=== PATIENT | male | born 1980 | race Caucasian/White ===

== ENCOUNTER 2025-02-15 09:10 | Emergency (ER) | payer MEDICAID, OTHER ==
[~2025-02-15] VITALS: Ht 170.2 cm; Wt 92.5 kg
[2025-02-15 10:37] LABS: BASOPHILS % (AUTO) 0.4 % (0.0-2.0); EOSINOPHILS # (AUTO) 0.1 K/uL (0.0-0.7); HEMATOCRIT 40.7 % (36.7-47.1); HEMOGLOBIN 13.2 g/dL (12.5-16.3); LYMPHOCYTES # (AUTO) 5.6 K/uL (0.8-4.8); LYMPHOCYTES % (AUTO) 67.1 % (20.5-51.5); MEAN CORPUSCULAR HEMOGLOBIN 26.8 uug (23.8-33.4); MEAN CORPUSCULAR HGB CONC 32 g/dL (32.5-36.3); MEAN CORPUSCULAR VOLUME 82.9 fL (73.0-96.2); MONOCYTES # (AUTO) 0.3 K/uL (0.1-1.30); MONOCYTES % (AUTO) 3.7 % (0.0-11.0); NEUTROPHILS # (AUTO) 2.3 K/uL (1.8-8.9); NEUTROPHILS % (AUTO) 27.8 % (38.5-71.5); PLATELET COUNT (AUTO) 221 K/uL (152-348); RED BLOOD CELL COUNT(AUTO) 4.92 MIL/uL (4.06-5.63); RED CELL DISTRIBUTION WIDTH 16.3 % (12.1-16.2); WHITE BLOOD COUNT (AUTO) 8.4 K/uL (3.6-10.2)
[2025-02-15 10:46] LABS: DIFFERENTIAL COMMENT 1
[2025-02-15 11:07] LABS: ALBUMIN 2.3 g/dL (3.4-5.0); BILIRUBIN,DIRECT 0.4 mg/dL (0.0-0.2); BILIRUBIN,TOTAL 0.6 mg/dL (0.2-1.0); CALCIUM 8.6 mg/dL (8.5-10.1); CREATININE 1.1 mg/dL (0.6-1.3); POTASSIUM 4.4 mmol/L (3.5-5.1); TOTAL PROTEIN, SERUM 6.1 g/dL (6.4-8.2)
[2025-02-15] MEDS ORDERED: CEFAZOLIN 1 G VIAL ONE (11:55)
[2025-02-15] MEDS ORDERED: MAGNESIUM SULFATE/D5W 100 ML ONE ×2 (11:55→13:17)
[2025-02-15] MEDS: CEFAZOLIN 1 G in IV DEXTROSE 5% 50 ML IV ONE (12:12)
[2025-02-15] MEDS ORDERED: CEFD300C3 PO (12:33)
[2025-02-15] MEDS: MAGNESIUM SULFATE/D5W 100 ML IV SCH (12:41)
[2025-02-15] MEDS ORDERED: FLAS1EAC2 TP (14:29)
[2025-02-15] MEDS ORDERED: FLAS1KIT2 TP (14:29)
[2025-02-15] MEDS ORDERED: BLOO-1731 MC (14:55)
[2025-02-15 15:03] VITALS: BP 121/77; O2SAT 98
== END 2025-02-15 15:07 | disposition home or self-care (01) ==
LOC: ER 09:10
DX: L08.89 Other specified local infections of the skin and subcutaneous tissue (principal); E11.9 Type 2 diabetes mellitus without complications; E83.42 Hypomagnesemia; E78.5 Hyperlipidemia, unspecified; G40.909 Epilepsy, unspecified, not intractable, without status epilepticus; I50.9 Heart failure, unspecified; J45.909 Unspecified asthma, uncomplicated; Z88.0 Allergy status to penicillin; Z88.1 Allergy status to other antibiotic agents; Z88.2 Allergy status to sulfonamides
CPT/HCPCS: 99284; 96365; 71045; 96367; 96366; 80076; 80048; 83880; 83735; 85025; J0690; J3475 ×2; J7040; A4606; A4663

== ENCOUNTER 2025-07-24 20:55 | Emergency (ER) | payer OTHER ==
[~2025-07-24] VITALS: Ht 170.2 cm; Wt 120.7 kg
[~2025-07-24 20:55] MED LIST: BLOO-1731 MC; CEFD300C3 PO
[2025-07-24 21:29] LABS: PLATELET COUNT (AUTO) 152 K/uL (152-348); RED BLOOD CELL COUNT(AUTO) 5.03 MIL/uL (4.06-5.63); RED CELL DISTRIBUTION WIDTH 16.4 % (12.1-16.2); WHITE BLOOD COUNT (AUTO) 10.1 K/uL (3.6-10.2)
[2025-07-24 21:44] LABS: ASPARTATE AMINOTRANSFERASE 31.0 U/L (15-37); CREATININE 1.2 mg/dL (0.6-1.3); SODIUM SERUM 125.0 mmol/L (136-145); TOTAL PROTEIN, SERUM 5.9 g/dL (6.4-8.2); UREA NITROGEN, BLOOD 17.0 mg/dL (7-18)
[2025-07-24] MEDS ORDERED: BUMETANIDE 1 MG/4 ML VIAL ONE (21:56)
[2025-07-24] MEDS ORDERED: VANCOMYCIN IV 200 ML ONE (21:56)
[2025-07-24] MEDS ORDERED: INSU100I14 SQ ×2 (21:57→22:42)
[2025-07-24] MEDS ORDERED: ATOR40TA PO ×2 (21:57→22:42)
[2025-07-24] MEDS ORDERED: LEVE1000 PO ×2 (21:57→22:42)
[2025-07-24] MEDS ORDERED: SEMA0.25 SQ (21:57)
[2025-07-24] MEDS ORDERED: INSU100V7 SQ ×2 (21:57→22:42)
[2025-07-24] MEDS ORDERED: CARV12.52 PO ×2 (21:57→22:42)
[2025-07-24] MEDS ORDERED: ALBU8.5H8 INH ×2 (21:57→22:42)
[2025-07-24] MEDS ORDERED: EMPA25TA PO ×2 (21:57→22:42)
[2025-07-24] MEDS ORDERED: LOSA25TA27 PO ×2 (21:57→22:42)
[2025-07-24] MEDS ORDERED: BUME1TAB8 PO ×2 (21:57→22:42)
[2025-07-24] MEDS ORDERED: METF-495 PO ×2 (21:57→22:42)
[2025-07-24] MEDS ORDERED: INSULIN REGULAR, HUMAN 1000 UNIT/10 ML VIAL ONE (21:58)
[2025-07-24] MEDS: VANCOMYCIN IV 1,000 MG in IV DEXTROSE 5% 250 ML IV ONE (22:04)
[2025-07-24] MEDS: BUMETANIDE 1 MG/4 ML VIAL IV ONE (22:05)
[2025-07-24] MEDS: INSULIN REGULAR, HUMAN 1000 UNIT/10 ML VIAL IV ONE (22:06)
[2025-07-24] MEDS ORDERED: ASPIRIN 325 MG TABLET ONE (22:12)
[2025-07-24] MEDS ORDERED: ASPIRIN EC 81 MG TABLET.DR PO ONE (22:13)
[2025-07-24] MEDS: ASPIRIN 81 MG TAB.CHEW PO ONE (22:14)
[2025-07-24] MEDS ORDERED: DOXY100T2 PO (22:43)
[2025-07-24] MEDS ORDERED: CEPH500C2 PO (22:44)
[2025-07-24] MEDS ORDERED: ASPI81TA31 PO (22:45)
[2025-07-25 00:25] VITALS: BP 186/172
[2025-07-25 00:43] VITALS: BP 186/172; O2SAT 99
== END 2025-07-25 00:44 | disposition left against medical advice (07) ==
LOC: ER 20:57
DX: I21.4 Non-ST elevation (NSTEMI) myocardial infarction (principal); I11.0 Hypertensive heart disease with heart failure; I50.22 Chronic systolic (congestive) heart failure; F17.210 Nicotine dependence, cigarettes, uncomplicated; R06.02 Shortness of breath; E11.9 Type 2 diabetes mellitus without complications; E78.5 Hyperlipidemia, unspecified; E87.1 Hypo-osmolality and hyponatremia; J45.909 Unspecified asthma, uncomplicated; L03.90 Cellulitis, unspecified; Z79.4 Long term (current) use of insulin; Z79.82 Long term (current) use of aspirin; Z79.84 Long term (current) use of oral hypoglycemic drugs; Z79.899 Other long term (current) drug therapy; Z88.0 Allergy status to penicillin; Z88.1 Allergy status to other antibiotic agents; Z88.2 Allergy status to sulfonamides
CPT/HCPCS: 99291; 96365; 96366; 96375; 80053; 83880; 83735; 85025; 85651; 86140; 84484 ×2; 36415; 71045; 73630; 93005; J3490; J3373; J1815; A4606; A4663